=== PATIENT | male | born 1985 | race African-American/Black ===

== ENCOUNTER 2017-04-01 23:04 | Emergency (ER) | payer SELFPAY ==
[~2017-04-01] VITALS: Ht 188 cm; Wt 86.2 kg
[2017-04-01] MEDS ORDERED: UNOBMED (23:14)
[2017-04-01 23:15] VITALS: BP 153/57
[2017-04-02 01:00] VITALS: BP 120/67
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
[2017-04-02 01:25] VITALS: BP 120/67
--- NOTE | 2017-04-10 08:22 | Cardiology Report ---
APPROVED REPORT EKG Measurement Heart [id number] Normal sinus rhythm Rightward axis Borderline ECG
== END 2017-04-02 01:25 ==
LOC: EDBD 23:04 → EMR 23:50
DX: F29 Unspecified psychosis not due to a substance or known physiological condition (principal); F12.929 Cannabis use, unspecified with intoxication, unspecified; S20.359A Superficial foreign body of unspecified front wall of thorax, initial encounter; S30.851A Superficial foreign body of abdominal wall, initial encounter; Y35.891A Legal intervention involving other specified means, law enforcement official injured, initial encounter; Y92.89 Other specified places as the place of occurrence of the external cause; Z91.013 Allergy to seafood
CPT/HCPCS: 80307; 93005; 99283